=== PATIENT | male | born 1960 | race Caucasian/White ===

== ENCOUNTER 2018-04-10 22:53 | Inpatient (IN) | payer MEDICAID, OTHER ==
[~2018-04-10] VITALS: Ht 160 cm; Wt 76.4 kg
[2018-04-10] MEDS ORDERED: ONDANSETRON 4 MG INJ IV STA (23:44)
[2018-04-10] MEDS ORDERED: OCTREOTIDE 50 MCG in SOD CHLORIDE 0.9% 25 ML IVPB STA (23:44)
[2018-04-10] MEDS ORDERED: PANTOPRAZOLE IV 80 MG in SOD CHLORIDE 0.9% 100 ML IV STA (23:44)
[2018-04-10] MEDS ORDERED: PANTOPRAZOLE IV 80 MG in SOD CHLORIDE 0.9% 100 ML IVPB STA (23:44)
[2018-04-10] MEDS ORDERED: CEFTRIAXONE 1 GM/50 ML (PMX) 50 ML IVPB STA (23:44)
[2018-04-10] MEDS ORDERED: SOD CHLORIDE 0.9% 1,000 ML IV STA (23:44)
[2018-04-10] MEDS ORDERED: morphine 4 MG/ML VIAL IV STA (23:44)
[2018-04-10] MEDS ORDERED: OCTREOTIDE 500 MCG in SOD CHLORIDE 0.9% 49 ML IV STA (23:44)
[2018-04-11] VITALS (24 sets, daily range): BP systolic 100–139; BP diastolic 56–89; PULSE 79–117; RESP 15–34; Ht 160 cm; Wt 76.4 kg
[2018-04-11] MEDS ORDERED: ONDANSETRON INJ 8 MG in DEXTROSE 5% 50 ML IV STA (00:56)
[2018-04-11] MEDS ORDERED: METOCLOPRAMIDE 10 MG INJ IV STA (00:56)
[2018-04-11] MEDS ORDERED: morphine 2 MG INJ IV PRN (02:00)
[2018-04-11] MEDS ORDERED: NACL 0.9% 3 ML SYG IV SCH (02:00)
[2018-04-11] MEDS ORDERED: SOD CHLORIDE 0.9% 250 ML IV* ONE (02:38)
--- NOTE | 2018-04-11 02:54 | HP ---
Date/Time of Note Date/Time of Note DATE: 04/11/18 TIME: 02:54 Assessment/Plan VTE Prophylaxis Pharmacological prophylaxis: other Lines/Catheters IV Catheter Type (from Nrs): Saline Lock Assessment/Plan Hospital Course Objective Physical exam General: Patient is laying in bed and answers questions appropriately Mentation: Patient is alert and oriented 4, Head: Normocephalic atraumatic Eyes: EOMI, pupils reactive to light Neck: Supple, nontender, midline Respiratory: Clear to auscultation bilaterally Cardiovascular: regular rate, no obvious murmurs Gastrointestinal: Distended and tender to palpation, bowel sounds heard. Ventral hernia palpated and easily reducible Neurological: Moves all extremities spontaneously Skin: No new skin lesions Assessment and plan Acute upper and lower GI bleed -Secondary to alcoholic cirrhosis -We will reach out to GI for consultation, Dr. Ball -Likely upper GI source at this time, continue PPI drip, octreotide drip, ceftriaxone for prophylaxis -NG tube to intermittent suction -Since actively bleeding, order stat 1 unit packed RBC and 1 unit FFP -Standing order of transfusion of 1 unit of packed RBC if hemoglobin dips below 8.0 -IV fluids -NPO -Hemoglobin hematocrit every 6 hours Alcoholic liver cirrhosis -Patient has not seen a physician, it appears patient had this diagnosis for quite some time, not on any medications -GI recommendations appreciated elevated INR -mild, but likely 2/2 cirrhosis -will attempt vit K once, as patient is still actively bleeding Abdominal distention -Likely secondary to ascites secondary to alcoholic liver cirrhosis -CT abdomen pelvis has been done, pending read -Patient will likely need paracentesis before discharge however on hold for now as the urgent issue is the GI bleed Ventral hernia -Easily reducible -Pending CT read Tachycardia -Likely secondary to acute blood loss, continue IV hydration and monitor in ICU Disposition -Admit to the ICU for close monitoring as patient on the verge of continuous bleed, continue treatment for presumed upper GI bleed, stat 1 unit of packed RBC and 1 unit of FFP pending, Result Diagram: 04/10/18 0000 04/10/18 0000 HPI/ROS Admit Date/Time Admit Date/Time Hx of Present Illness Patient is an alcoholic male who presents to [facility] for acute onset hematemesis. Patient is an alcoholic who currently drinks every day whose last drink was only a couple hours before hospital admission who came to the ER after vomiting blood. Patient states that this is happened one time before but was approximately 11 years ago. Patient drinks every day does not see doctors. Patient in the ED had multiple episodes of julia temesis as well as black stool. Patient currently has an NG tube and draining blood however patient only really complains about abdominal distention and pain secondary to the distention. When asked patient how long the abdomen has been distended he states that it has been like that for a few years but has recently gotten worse. Patient currently denies chest pain, shortness of breath, headache, leg pain PMH/Family/Social Past Medical History Medications Current Medications Pantoprazole 80 mg/Sodium Chloride 100 ml @ 10 mls/hr ONCE STAT IV Last administered on 04/11/18at 01:00; Admin Dose 10 MLS/HR; Start 04/10/18 at 23:44; Stop 04/11/18 at 09:43 Octreotide Acetate 500 mcg/ Sodium Chloride 50 ml @ 5 mls/hr ONCE STAT IV Last administered on 04/11/18at 01:00; Admin Dose 5 MLS/HR; Start 04/10/18 at 23:44; Stop 04/11/18 at 09:43 Sodium Chloride 1,000 ml @ 100 mls/hr Q10H IV ; Start 04/11/18 at 01:44 IV Flush (NS 3 ml) 3 ml PER PROTOCOL IV ; Start 04/11/18 at 02:00 Ondansetron HCl (Zofran Inj) 4 mg Q6H PRN IV NAUSEA/VOMITING; Start 04/11/18 at 02:00 Morphine Sulfate (morphine) 2 mg Q4H PRN IV .PAIN 7-10; Start 04/11/18 at 02:00 Pantoprazole 80 mg/Sodium Chloride 100 ml @ 10 mls/hr Q10H IV ; Start 04/11/18 at 09:44 Octreotide Acetate 1 mg/ Dextrose 100 ml @ 5 mls/hr Q20H IV ; Start 04/11/18 at 09:44 Ceftriaxone Sodium 50 ml @ 100 mls/hr Q24H IVPB ; Start 04/12/18 at 02:00 Lorazepam (Ativan) 0.5 mg Q6H PRN IV anxiety; Start 04/11/18 at 03:00 Multivitamins 10 ml/Thiamine HCl 100 mg/Folic Acid 1 mg/Sodium Chloride 1,011.2 ml @ 125 mls/ hr DAILY@09 IVPB ; Start 04/11/18 at 09:00 Phytonadione (Vitamin K) 10 mg ONCE ONCE SC ; Start 04/11/18 at 03:00; Stop 04/11/18 at 03:01 Coded Allergies: No Known Allergy (Unverified , 04/11/18) Social History Smoking Status: Never smoker Exam/Review of Systems Vital Signs Vitals Vital Signs Date Temp Pulse Resp B/P (MAP) Pulse Ox O2 O2 Flow FiO2 Time Delivery Rate 04/11/18 113 18 121/61 96 Room Air 02:08 (81) 04/10/18 98.9 23:01 Intake and Output 04/10/18 04/10/18 04/11/18 1515:00 23:00 07:00 IntakeIntake Total 176 ml BalanceBalance 176 ml ZENY SEGUNDO Apr 11, 2018 02:54
[2018-04-11] MEDS ORDERED: MULTI PO (02:56)
[2018-04-11] MEDS ORDERED: PHYTONADIONE 10 MG/ML INJ SC ONE (03:00)
[2018-04-11] MEDS ORDERED: LORAZEPAM 2 MG INJ IV PRN (03:00)
--- NOTE | 2018-04-11 03:09 | ERD ---
ER Documentation Chief Complaint Chief Complaint HEMATEMESIS & BRIGHT RED BLOOD IN STOOL X 1 WEEK, SKIN PALE & SOB HPI This is a 58-year-old male comes in with complaints of coffee-ground emesis and bright red blood per stool for the past week. He has had 4-5 episodes of bloody stool 4-5 episodes of Emesis per Day. Patient Said He Feels Very Weak As Well. He Has a History of Cirrhosis. Denies Any Previous History of Esophageal Variceal Bleeding. ROS All systems reviewed and are negative except as per history of present illness. Medications Home Meds Reported Medications Multivitamins* (Theragran*) 1 Tab Tab, 1 TAB PO DAILY, TAB 04/11/18 Allergies Allergies: Coded Allergies: No Known Allergy (Unverified , 04/11/18) PMhx/Soc History of Surgery: Yes (HERNIA REPAIR) Anesthesia Reaction: No Hx Neurological Disorder: No Hx Respiratory Disorders: No Hx Cardiac Disorders: No Hx Psychiatric Problems: No Hx Miscellaneous Medical Probl: Yes (LIVER CIRRHOSIS) Hx Alcohol Use: Yes Hx Substance Use: No Hx Tobacco Use: No Smoking Status: Never smoker Physical Exam Vitals Vital Signs Date Temp Pulse Resp B/P (MAP) Pulse Ox O2 O2 Flow FiO2 Time Delivery Rate 04/11/18 113 18 121/61 96 Room Air 02:08 (81) 04/11/18 113 16 125/69 96 Room Air 01:00 (87) 04/11/18 115 24 118/58 97 Room Air 00:27 (78) 04/10/18 98.9 132 26 175/81 98 23:01 (112) Physical Exam Const: No acute distress Head: Atraumatic Eyes: Normal Conjunctiva ENT: Normal External Ears, Nose and Mouth. Neck: Full range of motion. No meningismus. Resp: Clear to auscultation bilaterally Cardio: Regular rate and rhythm, no murmurs Abd: Soft, non tender, non distended. Normal bowel sounds Skin: No petechiae or rashes Back: No midline or flank tenderness Ext: No cyanosis, or edema Neur: Awake and alert Psych: Normal Mood and Affect Result Diagram: 04/10/18 0000 04/10/18 0000 Results 24 hrs Laboratory Tests Test 04/10/18 00:00 White Blood Count 5.4 10^3/ul Red Blood Count 3.24 10^6/ul Hemoglobin 8.4 g/dl Hematocrit 28.1 % Mean Corpuscular Volume 86.7 fl Mean Corpuscular Hemoglobin 25.9 pg Mean Corpuscular Hemoglobin Concent 29.9 g/dl Red Cell Distribution Width 16.6 % Platelet Count 92 10^3/UL Mean Platelet Volume 10.2 fl Immature Granulocytes % 0.600 % Neutrophils % 75.1 % Lymphocytes % 10.8 % Monocytes % 9.2 % Eosinophils % 3.9 % Basophils % 0.4 % Nucleated Red Blood Cells % 0.0 /100WBC Immature Granulocytes # 0.030 10^3/ul Neutrophils # 4.0 10^3/ul Lymphocytes # 0.6 10^3/ul Monocytes # 0.5 10^3/ul Eosinophils # 0.2 10^3/ul Basophils # 0.0 10^3/ul Nucleated Red Blood Cells # 0.0 10^3/ul Prothrombin Time 17.3 Sec Prothrombin Time Ratio 1.4 INR International Normalized Ratio 1.40 Activated Partial Thromboplast Time 27.5 Sec Sodium Level 142 mmol/L Potassium Level 4.2 mmol/L Chloride Level 110 mmol/L Carbon Dioxide Level 22 mmol/L Anion Gap 10 Blood Urea Nitrogen 19 mg/dl Creatinine 0.60 mg/dl Est Glomerular Filtrat Rate mL/min > 60 mL/min Glucose Level 167 mg/dl Calcium Level 8.5 mg/dl Total Bilirubin 1.0 mg/dl Direct Bilirubin 0.00 mg/dl Indirect Bilirubin 1.0 mg/dl Aspartate Amino Transf (AST/SGOT) 52 IU/L Alanine Aminotransferase (ALT/SGPT) 39 IU/L Alkaline Phosphatase 75 IU/L Troponin I < 0.012 ng/ml Total Protein 6.9 g/dl Albumin 3.3 g/dl Globulin 3.60 g/dl Albumin/Globulin Ratio 0.91 Lipase 225 U/L Current Medications Medications Dose Sig/Zaina Start Time Status Last (Trade) Ordered Route PRN Stop Time Admin Dose Reason Admin Sodium 1,000 ml @ Q1H STAT 04/10/18 DC 04/11/18 Chloride 1,000 mls/hr IV 23:44 00:20 04/11/18 00:43 Pantoprazole 100 ml @ ONCE STAT 04/10/18 DC 04/11/18 80 mg/Sodium 400 mls/hr IVPB 23:44 00:40 Chloride 2/13/19 23:58 Pantoprazole 100 ml @ ONCE STAT 04/10/18 04/11/18 80 mg/Sodium 10 mls/hr IV 23:44 01:00 Chloride 04/11/18 09:43 Octreotide 26 ml @ Q16M STAT 04/10/18 DC 04/11/18 Acetate 50 100 mls/hr IVPB 23:44 00:40 mcg/ Sodium 04/10/18 23:59 Chloride Octreotide 50 ml @ 5 ONCE STAT 04/10/18 04/11/18 Acetate 500 mls/hr IV 23:44 01:00 mcg/ Sodium 04/11/18 09:43 Chloride Ondansetron 4 mg ONCE STAT 04/10/18 DC 04/11/18 HCl (Zofran IV 23:44 00:19 Inj) 04/10/18 23:46 Ceftriaxone 50 ml @ ONCE STAT 04/10/18 DC 04/11/18 Sodium 100 mls/hr IVPB 23:44 00:20 04/11/18 00:13 Morphine 4 mg ONCE STAT 04/10/18 DC 04/11/18 Sulfate IV 23:44 00:19 (morphine) 04/10/18 23:46 Ondansetron 54 ml @ ONCE STAT 04/11/18 DC 04/11/18 HCl 8 200 mls/hr IV 00:56 01:10 mg/Dextrose 04/11/18 01:12 10 mg ONCE STAT 04/11/18 DC 04/11/18 Metoclopramid IV 00:56 01:10 e HCl 04/11/18 00:58 (Reglan) Sodium 1,000 ml @ Q10H IV 04/11/18 Chloride 100 mls/hr 01:44 IV Flush 3 ml PER 04/11/18 (NS 3 ml) PROTOCOL IV 02:00 Ondansetron 4 mg Q6H PRN 04/11/18 HCl (Zofran IV 02:00 Inj) NAUSEA/VOMITI NG Morphine 2 mg Q4H PRN 04/11/18 Sulfate IV .PAIN 02:00 (morphine) 7-10 Pantoprazole 100 ml @ Q10H IV 04/11/18 80 mg/Sodium 10 mls/hr 09:44 Chloride Octreotide 100 ml @ 5 Q20H IV 04/11/18 Acetate 1 mls/hr 09:44 mg/ Dextrose Ceftriaxone 50 ml @ Q24H IVPB 04/12/18 Sodium 100 mls/hr 02:00 Sodium 250 ml @ 0 Q0M ONCE 04/11/18 DC Chloride mls/hr IV* 02:38 04/11/18 02:40 Lorazepam 0.5 mg Q6H PRN 04/11/18 (Ativan) IV anxiety 03:00 1,011.2 ml DAILY@09 04/11/18 Multivitamins @ 125 mls/ IVPB 09:00 10 hr ml/Thiamine HCl 100 mg/Folic Acid 1 mg/Sodium Chloride 10 mg ONCE ONCE 04/11/18 DC Phytonadione SC 03:00 (Vitamin K) 04/11/18 03:01 Procedures/MDM EKG: Rate/Rhythm: Sinus tachycardia QRS, ST, T-waves: [No changes consistent w/ acute ischemia] Impression: Sinus tachycardia Chest X-ray 1V Interpreted by me: Soft Tissue: No acute abnormalities Bones: No acute abnormalities Mediastinum/Cardiac Silhouette/Lungs: [No acute abnormalities] Critical Care: Time: 45 minutes, independent of any separately billable procedural time Treatments/Evaluations: Close monitoring and treatment of unstable vital signs, cardiorespiratory, and neurologic status, while maintaining tight balance of fluid, respiratory, and cardiac interventions. Department course: Patient seen and evaluated by ER MD. Intravenous access t established and blood work drawn. Started on Sandostatin and Protonix drip. Medical decision making: This is a very pleasant patient who unfortunately has likely esophageal variceal bleeding. Started on appropriate Sandostatin and Protonix drips. NG tube placed. Patient will be admitted to hospitalist in the intensive care setting for further evaluation and management GI consultation. Continues to remain clinically stable here in the emergency department Departure Diagnosis: Primary Impression: Hematemesis Nausea presence: unspecified Qualified Codes: K92.0 - Hematemesis Condition: Critical DAMIAN KOWALSKI Apr 11, 2018 03:09
[2018-04-11] MEDS: SOD CHLORIDE 0.9% 1,000 ML IV SCH ×3 (05:41→21:06)
[2018-04-11] MEDS: ONDANSETRON 4 MG INJ IV PRN ×2 (06:24→12:13)
--- NOTE | 2018-04-11 09:46 | PN ---
Date/Time of Note Date/Time of Note DATE: 04/11/18 TIME: 09:40 Assessment/Plan VTE Prophylaxis Risk score (from Ns)>0 risk: 3 SCD applied (from Ns): Yes Pharmacological prophylaxis: other Pharm contraindication: bleeding Lines/Catheters [facility] Urinary Cath still in place: No Assessment/Plan Hospital Course S: Per discussion with nursing staff, patient apparently got 1 unit PRBC transfusion and FFP transfusion earlier this morning. NG tube still in place. O: VS - see below Physical exam General: Lying in bed, alert, NG tube in place Head: Normocephalic atraumatic Eyes: EOMI, pupils reactive to light Neck: Supple, nontender, midline Respiratory: Clear to auscultation bilaterally Cardiovascular: regular rate, no obvious murmurs Gastrointestinal: Distended and tender to palpation, bowel sounds heard. Ventral hernia palpated and easily reducible Neurological: Moves all extremities spontaneously CT abdomen and pelvis: IMPRESSION: 1. Cirrhotic liver without discrete mass. 2. Splenomegaly and varicosities likely consistent with portal hypertension. 3. Mild to moderate ascites. 4. Ventral abdominal wall hernia containing mesenteric fat only. 5. Diverticulosis without diverticulitis. 6. Cholelithiasis. 7. Cardiomegaly. Assessment and plan: 58-year-old male who presents with: # Acute upper and lower GI bleed-likely secondary to alcoholic cirrhosis. Suspect upper GI source at this time. Apparently received 1 unit PRBC and FFP earlier today. - continue PPI drip, octreotide drip, ceftriaxone for prophylaxis, follow-up recommendations from GI team -Continue NG tube to intermittent suction -Continue IV fluids, and NPO for now -Monitor hemoglobin and hematocrit per GI recommendations # Alcoholic liver cirrhosis-Patient has not seen a physician, it appears patient had this diagnosis for quite some time, not on any medications -Check ethanol level, monitor for signs of withdrawal, follow-up GI recommendations, Ativan as needed, consider banana bag # elevated INR-mild, but likely 2/2 cirrhosis -Status post FFP, monitor coags for now. # Abdominal distention-Likely secondary to ascites secondary to alcoholic liver cirrhosis. CT abdomen pelvis results noted. -We will order for paracentesis, follow-up fluid studies and GI recommendations # Ventral hernia-Easily reducible -Monitor for now, if worsens consider surgery consult # Tachycardia -Likely secondary to acute blood loss, continue IV hydration and monitor in ICU -Monitor for now Critical care time spent in patient care today equals 50 minutes. Result Diagram: 04/10/18 0000 04/10/18 0000 Exam/Review of Systems Exam Vitals Vital Signs Date Temp Pulse Resp B/P (MAP) Pulse Ox O2 O2 Flow FiO2 Time Delivery Rate 04/11/18 102 18 129/82 96 09:00 (98) 04/11/18 98.2 Room Air 08:00 Intake and Output 04/10/18 04/10/18 04/11/18 1414:59 22:59 06:59 IntakeIntake Total 541 ml BalanceBalance 541 ml Medications Medication Current Medications Pantoprazole 80 mg/Sodium Chloride 100 ml @ 10 mls/hr ONCE STAT IV Last administered on 04/11/18at 01:00; Admin Dose 10 MLS/HR; Start 04/10/18 at 23:44; Stop 04/11/18 at 09:43 Octreotide Acetate 500 mcg/ Sodium Chloride 50 ml @ 5 mls/hr ONCE STAT IV Last administered on 04/11/18at 01:00; Admin Dose 5 MLS/HR; Start 04/10/18 at 23:44; Stop 04/11/18 at 09:43 Sodium Chloride 1,000 ml @ 100 mls/hr Q10H IV Last administered on 04/11/18at 05:41; Admin Dose 100 MLS/HR; Start 04/11/18 at 01:44 IV Flush (NS 3 ml) 3 ml PER PROTOCOL IV ; Start 04/11/18 at 02:00 Ondansetron HCl (Zofran Inj) 4 mg Q6H PRN IV NAUSEA/VOMITING Last administered on 04/11/18at 06:24; Admin Dose 4 MG; Start 04/11/18 at 02:00 Morphine Sulfate (morphine) 2 mg Q4H PRN IV .PAIN 7-10; Start 04/11/18 at 02:00 Pantoprazole 80 mg/Sodium Chloride 100 ml @ 10 mls/hr Q10H IV ; Start 04/11/18 at 09:44 Octreotide Acetate 1 mg/ Dextrose 100 ml @ 5 mls/hr Q20H IV ; Start 04/11/18 at 09:44 Ceftriaxone Sodium 50 ml @ 100 mls/hr Q24H IVPB ; Start 04/12/18 at 02:00 Lorazepam (Ativan) 0.5 mg Q6H PRN IV anxiety; Start 04/11/18 at 03:00 Multivitamins 10 ml/Thiamine HCl 100 mg/Folic Acid 1 mg/Sodium Chloride 1,011.2 ml @ 125 mls/ hr DAILY@09 IVPB ; Start 04/11/18 at 09:00 Influenza Virus Vaccine Quadrival (Fluzone) 0.5 ml ONCE ONCE IM* ; Start 04/12/18 at 11:00; Stop 04/12/18 at 11:01 Trimethobenzamide HCl (Tigan) 200 mg Q6H PRN IM NAUSEA AND/OR VOMITING; Start 04/11/18 at 10:00; Status SANDI LOPEZ Apr 11, 2018 09:46
[2018-04-11] MEDS: PANTOPRAZOLE IV 80 MG in SOD CHLORIDE 0.9% 100 ML IV SCH ×2 (09:57→21:06)
[2018-04-11] MEDS: OCTREOTIDE 1 MG in DEXTROSE 5% 95 ML IV SCH (09:58)
[2018-04-11] MEDS ORDERED: TRIMETHOBENZAMIDE 100 MG/ML VIAL IM PRN (10:00)
[2018-04-11] MEDS: MULTIVITAMINS 10 ML, THIAMINE 100 MG, FOLIC ACID 1 MG in SOD CHLORIDE 0.9% 1,000 ML IVPB SCH (12:09)
--- NOTE | 2018-04-11 14:53 | CONS ---
Assessment/Plan Assessment/Plan Assessment/Plan (Daily) Summary Assessment and Plan: Assessment: Hematochezia/melena Alcoholic liver cirrhosis (DF 12)- Last alcoholic drink 04/09/18 -Normocytic anemia -Thrombocytopenia -Coagulopathy elevated AST Tachycardia Cholelithiasis Plan: Continue PPI/Octreotide gtt for now Monitor H/H transfuse as needed Keep NPO for possible EGD today Endoscopy - risks/benefits/alternatives/indications of procedure and s edation/anesthesia discussed with patient who states understanding and gives informed consent to proceed. Patient seen in collaboration Dr. Green CC: MILDRED GREEN ; Consultation Date/Type/Reason Admit Date/Time Date of Consultation: Apr 11, 2018 Type of Consult GI Date/Time of Note DATE: 04/11/18 TIME: 14:25 Hx of Present Illness This is a 58-year-old male with past medical history of alcohol abuse and alcoholic liver cirrhosis who presented to the hospital with complaints of melena times 1 week and hematemesis times 1 day. Patient states he drinks about 2-3 beers per day and much more in the weekends up to 12-15 been doing so for the past 4 years. Patient states he has had episodes like this previously which has resolved on their own. He also states he previously had an EGD unclear on those results. With hospitalization hematology shows hemoglobin of 8.4, INR 1.40 he is status post 1 unit packed RBCs and 1 unit FFP hemoglobin was rechecked 10 hours later and again hemoglobin is 8.4 currently has an NG tube in place with bloody drainage his platelet count is 73 he currently denies nausea/vomiting complains of some abdominal pain with umbilical hernia no complaints of diarrhea or hematochezia does complain of melena. Given clinical picture plan for EGD likely today. Patient is currently on PPI/octreotide drip will continue current regimen until we assess patient with upper endoscopy. Review of Systems: A 12 system, review was conducted and is negative except as noted in the HPI or here. Past Medical History Home Meds Reported Medications Multivitamins* (Theragran*) 1 Tab Tab, 1 TAB PO DAILY, TAB 04/11/18 Medications Current Medications Sodium Chloride 1,000 ml @ 100 mls/hr Q10H IV Last administered on 04/11/18at 05:41; Admin Dose 100 MLS/HR; Start 04/11/18 at 01:44 IV Flush (NS 3 ml) 3 ml PER PROTOCOL IV ; Start 04/11/18 at 02:00 Ondansetron HCl (Zofran Inj) 4 mg Q6H PRN IV NAUSEA/VOMITING Last administered on 04/11/18at 12:13; Admin Dose 4 MG; Start 04/11/18 at 02:00 Morphine Sulfate (morphine) 2 mg Q4H PRN IV .PAIN 7-10; Start 04/11/18 at 02:00 Pantoprazole 80 mg/Sodium Chloride 100 ml @ 10 mls/hr Q10H IV Last administered on 04/11/18at 09:57; Admin Dose 10 MLS/HR; Start 04/11/18 at 09:44 Octreotide Acetate 1 mg/ Dextrose 100 ml @ 5 mls/hr Q20H IV Last administered on 04/11/18at 09:58; Admin Dose 5 MLS/HR; Start 04/11/18 at 09:44 Ceftriaxone Sodium 50 ml @ 100 mls/hr Q24H IVPB ; Start 04/12/18 at 02:00 Lorazepam (Ativan) 0.5 mg Q6H PRN IV anxiety; Start 04/11/18 at 03:00 Multivitamins 10 ml/Thiamine HCl 100 mg/Folic Acid 1 mg/Sodium Chloride 1,011.2 ml @ 125 mls/ hr DAILY@09 IVPB Last administered on 04/11/18at 12:09; Admin Dose 125 MLS/HR; Start 04/11/18 at 09:00 Influenza Virus Vaccine Quadrival (Fluzone) 0.5 ml ONCE ONCE IM* ; Start 04/12/18 at 11:00; Stop 04/12/18 at 11:01 Trimethobenzamide HCl (Tigan) 200 mg Q6H PRN IM NAUSEA AND/OR VOMITING; Start 04/11/18 at 10:00 Allergies: Coded Allergies: No Known Allergy (Unverified , 04/11/18) Social History Smoking Status: Never smoker Exam/Review of Systems Exam Vitals Vital Signs Date Temp Pulse Resp B/P (MAP) Pulse Ox O2 O2 Flow FiO2 Time Delivery Rate 04/11/18 103 21 132/78 99 13:00 (96) 04/11/18 98.0 Room Air 12:00 Intake and Output 04/10/18 04/10/18 04/11/18 1515:00 23:00 07:00 IntakeIntake Total 656 ml BalanceBalance 656 ml PHYSICAL EXAMINATION: GENERAL: Well developed, well nourished, alert & oriented x 3, in no acute distress SKIN: No lesions EYES: Pupils equal reactive to light and accommodation, full extraocular movements,no discharge. EARS/NOSE AND THROAT: Ears normal, nose normal, oropharynx normal. NGT in place NECK: Supple, no masses CHEST: Inspection within normal limits. CARDIOVASCULAR: Heart: Regular rate and rhythm, GASTROINTESTINAL AND LIVER: Abdomen: Soft, non tenderness, normal distended, no ascites, no guarding, no rebound tenderness, normoactive bowel sounds. Rectal: Deferred. Results Result Diagram: 04/11/18 0955 04/10/18 0000 Results 24hrs Laboratory Tests Test 04/11/18 09:55 White Blood Count 3.6 #L Red Blood Count 3.25 L Hemoglobin 8.4 L Hematocrit 27.8 L Mean Corpuscular Volume 85.5 Mean Corpuscular Hemoglobin 25.8 L Mean Corpuscular Hemoglobin Concent 30.2 L Red Cell Distribution Width 15.9 H Platelet Count 73 #L Mean Platelet Volume 11.0 H Immature Granulocytes % 0.800 H Neutrophils % 78.7 H Lymphocytes % 11.5 L Monocytes % 8.4 Eosinophils % 0.3 Basophils % 0.3 Nucleated Red Blood Cells % 0.0 Immature Granulocytes # 0.030 Neutrophils # 2.8 Lymphocytes # 0.4 L Monocytes # 0.3 Eosinophils # 0.0 Basophils # 0.0 Nucleated Red Blood Cells # 0.0 Ethyl Alcohol Level < 10.0 H Medications Medication Current Medications Sodium Chloride 1,000 ml @ 100 mls/hr Q10H IV Last administered on 04/11/18at 05:41; Admin Dose 100 MLS/HR; Start 04/11/18 at 01:44 IV Flush (NS 3 ml) 3 ml PER PROTOCOL IV ; Start 04/11/18 at 02:00 Ondansetron HCl (Zofran Inj) 4 mg Q6H PRN IV NAUSEA/VOMITING Last administered on 04/11/18at 12:13; Admin Dose 4 MG; Start 04/11/18 at 02:00 Morphine Sulfate (morphine) 2 mg Q4H PRN IV .PAIN 7-10; Start 04/11/18 at 02:00 Pantoprazole 80 mg/Sodium Chloride 100 ml @ 10 mls/hr Q10H IV Last administered on 04/11/18at 09:57; Admin Dose 10 MLS/HR; Start 04/11/18 at 09:44 Octreotide Acetate 1 mg/ Dextrose 100 ml @ 5 mls/hr Q20H IV Last administered on 04/11/18at 09:58; Admin Dose 5 MLS/HR; Start 04/11/18 at 09:44 Ceftriaxone Sodium 50 ml @ 100 mls/hr Q24H IVPB ; Start 04/12/18 at 02:00 Lorazepam (Ativan) 0.5 mg Q6H PRN IV anxiety; Start 04/11/18 at 03:00 Multivitamins 10 ml/Thiamine HCl 100 mg/Folic Acid 1 mg/Sodium Chloride 1,011.2 ml @ 125 mls/ hr DAILY@09 IVPB Last administered on 04/11/18at 12:09; Admin Dose 125 MLS/HR; Start 04/11/18 at 09:00 Influenza Virus Vaccine Quadrival (Fluzone) 0.5 ml ONCE ONCE IM* ; Start 04/12/18 at 11:00; Stop 04/12/18 at 11:01 Trimethobenzamide HCl (Tigan) 200 mg Q6H PRN IM NAUSEA AND/OR VOMITING; Start 04/11/18 at 10:00 LM DAVIS Apr 11, 2018 14:35
--- NOTE | 2018-04-11 18:29 | QN ---
Documentation Comment GI INTERIM NOTE Due to patient stability and procedural scheduling issues, we will reschedule patient to undergo EGD tomorrow. Keep NPO Serial H/H. Continue current supportive measures. MILDRED GREEN Apr 11, 2018 18:29
[2018-04-12] VITALS (21 sets, daily range): BP systolic 109–142; BP diastolic 62–91; PULSE 72–103; RESP 15–28
[2018-04-12] MEDS: CEFTRIAXONE 1 GM/50 ML (PMX) 50 ML IVPB SCH (02:00)
[2018-04-12] MEDS: OCTREOTIDE 1 MG in DEXTROSE 5% 95 ML IV SCH (05:50)
[2018-04-12] MEDS: PANTOPRAZOLE IV 80 MG in SOD CHLORIDE 0.9% 100 ML IV SCH ×2 (06:37→15:44)
[2018-04-12] MEDS: SOD CHLORIDE 0.9% 1,000 ML IV SCH ×3 (07:44→21:15)
[2018-04-12] MEDS: MULTIVITAMINS 10 ML, THIAMINE 100 MG, FOLIC ACID 1 MG in SOD CHLORIDE 0.9% 1,000 ML IVPB SCH (08:01)
--- NOTE | 2018-04-12 10:33 | PN ---
Date/Time of Note Date/Time of Note DATE: 04/12/18 TIME: 10:28 Assessment/Plan VTE Prophylaxis Risk score (from Ns)>0 risk: 1 SCD applied (from Ns): Yes Pharmacological prophylaxis: NA/contraindicated Pharm contraindication: bleeding Lines/Catheters IV Catheter Type (from [facility]): Peripheral IV Urinary Cath still in place: No Assessment/Plan Hospital Course S: Patient still n.p.o., complaining of some lower abdominal pain. Awaiting EGD to be performed later today. Not able to have paracentesis performed yesterday as they determined there was not enough fluid to be removed in the abdomen. Did receive another unit of PRBC transfusion earlier this morning. No signs of any upper or lower GI bleeding presently. NG tube still in place. O: VS - see below Physical exam General: Lying in bed, alert, NG tube in place Head: Normocephalic atraumatic Eyes: EOMI, pupils reactive to light Neck: Supple, nontender, midline Respiratory: Clear to auscultation bilaterally Cardiovascular: regular rate, no obvious murmurs Gastrointestinal: Distended and tender to palpation, bowel sounds heard. Ventral hernia palpated and easily reducible Neurological: Moves all extremities spontaneously CT abdomen and pelvis: IMPRESSION: 1. Cirrhotic liver without discrete mass. 2. Splenomegaly and varicosities likely consistent with portal hypertension. 3. Mild to moderate ascites. 4. Ventral abdominal wall hernia containing mesenteric fat only. 5. Diverticulosis without diverticulitis. 6. Cholelithiasis. 7. Cardiomegaly. Assessment and plan: 58-year-old male who presents with: # Acute upper and lower GI bleed-likely secondary to alcoholic cirrhosis. Suspect upper GI source at this time. Status post 1 unit of FFP transfusion earlier this admission, and a total of 2 units of PRBC transfusion since this admission. - continue PPI drip, octreotide drip, ceftriaxone for prophylaxis, follow-up recommendations from GI team -Continue NG tube to intermittent suction -Continue IV fluids, and NPO for now -per GI they are planning for EGD later today, follow-up post procedure recommendation -Monitor hemoglobin and hematocrit per GI recommendations # Alcoholic liver cirrhosis-Patient has not seen a physician, it appears patient had this diagnosis for quite some time, not on any medications at home apparently -monitor for signs of withdrawal, follow-up GI recommendations, Ativan as needed, consider banana bag # elevated INR-mild, but likely 2/2 cirrhosis -Status post FFP, monitor coags for now. # Abdominal distention-Likely secondary to mild ascites secondary to alcoholic liver cirrhosis. CT abdomen pelvis results noted. -Again, yesterday not enough fluid to removed via paracentesis so this was not done, monitor for now # Ventral hernia-Easily reducible -Monitor for now, if worsens consider surgery consult # Tachycardia -Likely secondary to acute blood loss, continue IV hydration and monitor in ICU -Monitor for now Critical care time spent in patient care today equals 45 minutes. Result Diagram: 04/12/18 0545 04/12/18 0545 Results 24hrs Laboratory Tests Test 04/11/18 15:55 04/11/18 18:07 04/12/18 00:27 04/12/18 04:58 Hemoglobin 8.3 L 8.3 L 7.9 L Hematocrit 26.8 L 27.1 L 25.7 L Lab Scanned BLOOD TRANSFUSIO Report N Test 04/12/18 05:45 White Blood Count 4.4 #L Red Blood Count 3.18 L Hemoglobin 8.8 L Hematocrit 27.9 L Mean Corpuscular 87.7 Volume Mean Corpuscular 27.7 L Hemoglobin Mean Corpuscular 31.5 L Hemoglobin Concen t Red Cell 16.1 H Distribution Width Platelet Count 62 L Mean Platelet 11.2 H Volume Immature 0.700 H Granulocytes % Neutrophils % 71.8 Lymphocytes % 13.2 L Monocytes % 8.6 Eosinophils % 5.2 Basophils % 0.5 Nucleated Red 0.0 Blood Cells % Immature 0.030 Granulocytes # Neutrophils # 3.2 Lymphocytes # 0.6 L Monocytes # 0.4 Eosinophils # 0.2 Basophils # 0.0 Nucleated Red 0.0 Blood Cells # Sodium Level 141 Potassium Level 3.4 L Chloride Level 112 H Carbon Dioxide 23 Level Anion Gap 6 Blood Urea 13 Nitrogen Creatinine 0.71 Est Glomerular > 60 Filtrat Rate mL/min Glucose Level 131 Hemoglobin A1c 5.3 Calcium Level 7.6 L Magnesium Level 2.0 Total Bilirubin 1.4 H Direct Bilirubin 0.00 Indirect 1.4 H Bilirubin Aspartate Amino 53 H Transf (AST/SGOT) Alanine 42 Aminotransferase (ALT/SGPT) Alkaline 74 Phosphatase Total Protein 6.6 Albumin 3.0 L Globulin 3.60 H Albumin/Globulin 0.83 Ratio Hepatitis B NEGATIVE Surface Antigen Hepatitis B NEGATIVE Surface Antibody Hepatitis B Core NEGATIVE Total Antibody Hepatitis C NEGATIVE Antibody Exam/Review of Systems Exam Vitals Vital Signs Date Temp Pulse Resp B/P (MAP) Pulse Ox O2 O2 Flow FiO2 Time Delivery Rate 04/12/18 84 20 138/84 95 10:00 (102) 04/12/18 Room Air 09:00 04/12/18 98.4 08:00 Intake and Output 04/11/18 04/11/18 04/12/18 1515:00 23:00 07:00 IntakeIntake Total 1070 ml 925 ml 854.5 ml OutputOutput Total 450 ml 1050 ml BalanceBalance 620 ml 925 ml -195.5 ml Results Results 24hrs Laboratory Tests Test 04/11/18 15:55 04/11/18 18:07 04/12/18 00:27 04/12/18 04:58 Hemoglobin 8.3 L 8.3 L 7.9 L Hematocrit 26.8 L 27.1 L 25.7 L Lab Scanned BLOOD TRANSFUSIO Report N Test 04/12/18 05:45 White Blood Count 4.4 #L Red Blood Count 3.18 L Hemoglobin 8.8 L Hematocrit 27.9 L Mean Corpuscular 87.7 Volume Mean Corpuscular 27.7 L Hemoglobin Mean Corpuscular 31.5 L Hemoglobin Concen t Red Cell 16.1 H Distribution Width Platelet Count 62 L Mean Platelet 11.2 H Volume Immature 0.700 H Granulocytes % Neutrophils % 71.8 Lymphocytes % 13.2 L Monocytes % 8.6 Eosinophils % 5.2 Basophils % 0.5 Nucleated Red 0.0 Blood Cells % Immature 0.030 Granulocytes # Neutrophils # 3.2 Lymphocytes # 0.6 L Monocytes # 0.4 Eosinophils # 0.2 Basophils # 0.0 Nucleated Red 0.0 Blood Cells # Sodium Level 141 Potassium Level 3.4 L Chloride Level 112 H Carbon Dioxide 23 Level Anion Gap 6 Blood Urea 13 Nitrogen Creatinine 0.71 Est Glomerular > 60 Filtrat Rate mL/min Glucose Level 131 Hemoglobin A1c 5.3 Calcium Level 7.6 L Magnesium Level 2.0 Total Bilirubin 1.4 H Direct Bilirubin 0.00 Indirect 1.4 H Bilirubin Aspartate Amino 53 H Transf (AST/SGOT) Alanine 42 Aminotransferase (ALT/SGPT) Alkaline 74 Phosphatase Total Protein 6.6 Albumin 3.0 L Globulin 3.60 H Albumin/Globulin 0.83 Ratio Hepatitis B NEGATIVE Surface Antigen Hepatitis B NEGATIVE Surface Antibody Hepatitis B Core NEGATIVE Total Antibody Hepatitis C NEGATIVE Antibody Medications Medication Current Medications Sodium Chloride 1,000 ml @ 100 mls/hr Q10H IV Last administered on 04/11/18at 21:06; Admin Dose 100 MLS/HR; Start 04/11/18 at 01:44 IV Flush (NS 3 ml) 3 ml PER PROTOCOL IV ; Start 04/11/18 at 02:00 Ondansetron HCl (Zofran Inj) 4 mg Q6H PRN IV NAUSEA/VOMITING Last administered on 04/11/18at 12:13; Admin Dose 4 MG; Start 04/11/18 at 02:00 Morphine Sulfate (morphine) 2 mg Q4H PRN IV .PAIN 7-10; Start 04/11/18 at 02:00 Pantoprazole 80 mg/Sodium Chloride 100 ml @ 10 mls/hr Q10H IV Last administered on 04/12/18at 06:37; Admin Dose 10 MLS/HR; Start 04/11/18 at 09:44 Octreotide Acetate 1 mg/ Dextrose 100 ml @ 5 mls/hr Q20H IV Last administered on 04/12/18at 05:50; Admin Dose 5 MLS/HR; Start 04/11/18 at 09:44 Ceftriaxone Sodium 50 ml @ 100 mls/hr Q24H IVPB Last administered on 04/12/18at 02:00; Admin Dose 100 MLS/HR; Start 04/12/18 at 02:00 Lorazepam (Ativan) 0.5 mg Q6H PRN IV anxiety; Start 04/11/18 at 03:00 Multivitamins 10 ml/Thiamine HCl 100 mg/Folic Acid 1 mg/Sodium Chloride 1,011.2 ml @ 125 mls/ hr DAILY@09 IVPB Last administered on 04/12/18at 08:01; Admin Dose 125 MLS/HR; Start 04/11/18 at 09:00 Influenza Virus Vaccine Quadrival (Fluzone) 0.5 ml ONCE ONCE IM* ; Start 04/12/18 at 11:00; Stop 04/12/18 at 11:01 Trimethobenzamide HCl (Tigan) 200 mg Q6H PRN IM NAUSEA AND/OR VOMITING; Start 04/11/18 at 10:00 Potassium Chloride 100 ml @ 50 mls/hr Q2H IVPB ; Start 04/12/18 at 10:30; Stop 04/12/18 at 14:29; Status SANDI LOPEZ Apr 12, 2018 10:33
[2018-04-12] MEDS: POTASSIUM CHLORIDE 100 ML IVPB SCH ×2 (10:47→13:21)
--- NOTE | 2018-04-12 13:33 | PREAC ---
Date/Time of Note Date/Time of Note DATE: 04/12/18 TIME: 13:32 Anesthesia Eval and Record Evaluation Time Pre-Procedure Interview DATE: 04/12/18 TIME: 13:32 Age 58 Sex male NPO: 8 hrs Preoperative diagnosis GI Bleed Planned procedure EGD Past Medical History Past Medical History: Includes Hepatic: Alcohol abuse, Cirrhosis Surgery & Anesthesia Issues No known issue Meds Anticoagulation: No Beta Yudy within 24 hr: No Reason Beta Yudy not given: Pt. not on B-Yudy Reported Medications Multivitamins* (Theragran*) 1 Tab Tab, 1 TAB PO DAILY, TAB 04/11/18 Current Medications Sodium Chloride 1,000 ml @ 100 mls/hr Q10H IV Last administered on 04/11/18at 21:06; Admin Dose 100 MLS/HR; Start 04/11/18 at 01:44 IV Flush (NS 3 ml) 3 ml PER PROTOCOL IV ; Start 04/11/18 at 02:00 Ondansetron HCl (Zofran Inj) 4 mg Q6H PRN IV NAUSEA/VOMITING Last administered on 04/11/18at 12:13; Admin Dose 4 MG; Start 04/11/18 at 02:00 Morphine Sulfate (morphine) 2 mg Q4H PRN IV .PAIN 7-10; Start 04/11/18 at 02:00 Pantoprazole 80 mg/Sodium Chloride 100 ml @ 10 mls/hr Q10H IV Last administered on 04/12/18at 06:37; Admin Dose 10 MLS/HR; Start 04/11/18 at 09:44 Octreotide Acetate 1 mg/ Dextrose 100 ml @ 5 mls/hr Q20H IV Last administered on 04/12/18at 05:50; Admin Dose 5 MLS/HR; Start 04/11/18 at 09:44 Ceftriaxone Sodium 50 ml @ 100 mls/hr Q24H IVPB Last administered on 04/12/18at 02:00; Admin Dose 100 MLS/HR; Start 04/12/18 at 02:00 Lorazepam (Ativan) 0.5 mg Q6H PRN IV anxiety; Start 04/11/18 at 03:00 Multivitamins 10 ml/Thiamine HCl 100 mg/Folic Acid 1 mg/Sodium Chloride 1,011.2 ml @ 125 mls/ hr DAILY@09 IVPB Last administered on 04/12/18at 08:01; Admin Dose 125 MLS/HR; Start 04/11/18 at 09:00 Trimethobenzamide HCl (Tigan) 200 mg Q6H PRN IM NAUSEA AND/OR VOMITING; Start 04/11/18 at 10:00 Potassium Chloride 100 ml @ 50 mls/hr Q2H IVPB Last administered on 04/12/18at 13:21; Admin Dose 50 MLS/HR; Start 04/12/18 at 11:00; Stop 04/12/18 at 14:59 Meds reviewed: Yes Allergies Coded Allergies: No Known Allergy (Unverified , 04/11/18) Allergies Reviewed: Yes Labs/Studies Labs Reviewed: Reviewed by anesthesiologist Result Diagram: 04/12/18 1136 04/12/18 0545 Laboratory Tests 04/12/18 05:45 04/12/18 11:36 test: N/A Pre-procedure Exam Last vitals Vital Signs Date Temp Pulse Resp B/P (MAP) Pulse Ox O2 O2 Flow FiO2 Time Delivery Rate 04/12/18 98.6 88 18 131/77 96 12:00 (95) 04/12/18 Room Air 11:00 Airway: Adequate mouth opening, Adequate thyromental dist Mallampati: Mallampati II Teeth: Normal Lung: Normal Heart: Normal ASA Physical Status ASA physical status: 3 Emergency: None Planned Anesthetic General/MAC: Mask Planned Pain Management Parenteral pain med Pre-operative Attestations Prior to commencing anesthesia and surgery, the patient was re-evaluated, there was verification of: *The patient's identity *The results of appropriate recent lab work and preoperative vital signs *The above evaluation not changing prior to induction *Anesthetic plan, risk benefits, alternative and complications discussed with patient/family; questions answered; patient/family understands, accepts and wishes to proceed. CHEY YAN MD Apr 12, 2018 13:33
--- NOTE | 2018-04-12 13:53 | HPN ---
Date/Time of Note Date/Time of Note DATE: 04/12/18 TIME: 13:53 Interval H&P Admission Note Pt. seen H&P reviewed: No system changes MILDRED GREEN Apr 12, 2018 13:53
--- NOTE | 2018-04-12 14:19 | PAC ---
Date/Time of Note Date/Time of Note DATE: 04/12/18 TIME: 14:18 Post-Anesthesia Notes Post-Anesthesia Note Last documented vital signs Vital Signs Date Temp Pulse Resp B/P (MAP) Pulse Ox O2 O2 Flow FiO2 Time Delivery Rate 04/12/18 98.3 91 23 123/79 97 Room Air 13:35 (94) Activity: WNL Respiratory function: WNL Cardiovascular function: WNL Mental status: Baseline Pain reasonably controlled: Yes Hydration appropriate: Yes Nausea/Vomiting absent: Yes Comments BP: 125/98 HR: 98 RR: 15 T: 98 SaO2: 97% CHEY YAN MD Apr 12, 2018 14:18
[2018-04-12] MEDS ORDERED: LIDOCAINE 2% (SDV) 5 ML INJ ONE (14:29)
[2018-04-12] MEDS ORDERED: PROPOFOL 40 ML ONE (14:29)
[2018-04-12] MEDS ORDERED: ONDANSETRON 4 MG INJ IV PRN (14:30)
[2018-04-12] MEDS: PANTOPRAZOLE (EC) 40 MG TAB PO SCH (17:11)
[2018-04-12] MEDS: PROPRANOLOL 10 MG TAB PO SCH (17:12)
[2018-04-13] MEDS: CEFTRIAXONE 1 GM/50 ML (PMX) 50 ML IVPB SCH (01:33)
[2018-04-13 01:50] VITALS: BP 119/75; PULSE 77; RESP 20
[2018-04-13] MEDS: SOD CHLORIDE 0.9% 1,000 ML IV SCH (03:08)
[2018-04-13] MEDS: PANTOPRAZOLE (EC) 40 MG TAB PO SCH (05:42)
[2018-04-13 08:13] VITALS: BP 147/89; PULSE 68; RESP 20
[2018-04-13] MEDS: PROPRANOLOL 10 MG TAB PO SCH (08:15)
--- NOTE | 2018-04-13 09:24 | PN ---
Date/Time of Note Date/Time of Note DATE: 04/13/18 TIME: 09:06 Assessment/Plan VTE Prophylaxis Risk score (from Ns)>0 risk: 1 SCD applied (from Ns): Yes Pharmacological prophylaxis: NA/contraindicated Pharm contraindication: bleeding Lines/Catheters IV Catheter Type (from Nrs): Saline Lock Urinary Cath still in place: No Assessment/Plan Hospital Course S: Patient out of ICU since yesterday. Off of PPI and octreotide drips since yesterday. Per nursing staff tolerating diet, no signs of any upper or lower GI bleeding. No acute events overnight. Received PRBC transfusion yesterday. O: VS - see below Physical exam General: Lying in bed, alert Head: Normocephalic atraumatic Eyes: EOMI, pupils reactive to light Neck: Supple, nontender, midline Respiratory: Clear to auscultation bilaterally Cardiovascular: regular rate, no obvious murmurs Gastrointestinal: Distended, bowel sounds heard. Ventral hernia palpated and easily reducible Neurological: Moves all extremities spontaneously CT abdomen and pelvis: IMPRESSION: 1. Cirrhotic liver without discrete mass. 2. Splenomegaly and varicosities likely consistent with portal hypertension. 3. Mild to moderate ascites. 4. Ventral abdominal wall hernia containing mesenteric fat only. 5. Diverticulosis without diverticulitis. 6. Cholelithiasis. 7. Cardiomegaly. EGD April 11, 2018: Esophageal varices, portal gastropathy Assessment and plan: 58-year-old male who presents with: # Acute upper and lower GI bleed-likely secondary to alcoholic cirrhosis. Suspect upper GI source, status post EGD earlier this admission; status post 1 unit of FFP transfusion earlier this admission, and a total of 2 units of PRBC transfusion since this admission. -Continue PPI p.o., propranolol p.o., follow-up recommendations from GI team -Continue diet per GI recommendations -Monitor hemoglobin and hematocrit per GI recommendations # Alcoholic liver cirrhosis-Patient has not seen a physician, it appears patient had this diagnosis for quite some time, not on any medications at home apparently -monitor for signs of withdrawal, follow-up GI recommendations, Ativan as needed # elevated INR-mild, no signs of bleeding presently, likely 2/2 cirrhosis -Status post FFP, monitor coags for now. # Abdominal distention-Likely secondary to mild ascites secondary to alcoholic liver cirrhosis. CT abdomen pelvis results noted. -Again, 2 days ago not enough fluid to removed via paracentesis so this was not done, monitor for now # Ventral hernia-Easily reducible -Monitor for now, if worsens consider surgery consult # Tachycardia -Likely secondary to acute blood loss, continue IV hydration and monitor in ICU -Monitor for now Result Diagram: 04/13/18 0610 04/13/18 0610 Results 24hrs Laboratory Tests Test 04/12/18 11:34 04/12/18 11:36 04/12/18 17:38 04/13/18 00:59 Hemoglobin A1c 5.4 Hemoglobin 9.7 L 9.2 L 8.8 L Hematocrit 31.1 L 29.7 L 28.0 L Test 04/13/18 06:10 04/13/18 06:11 White Blood Count 4.9 Red Blood Count 3.60 L Hemoglobin 9.8 L Hematocrit 31.9 L Mean Corpuscular 88.6 Volume Mean Corpuscular 27.2 L Hemoglobin Mean Corpuscular 30.7 L Hemoglobin Concent Red Cell 16.2 H Distribution Width Platelet Count 78 #L Mean Platelet Volume 11.1 H Immature 0.200 Granulocytes % Neutrophils % 66.0 Lymphocytes % 17.4 Monocytes % 8.8 Eosinophils % 7.0 Basophils % 0.6 Nucleated Red Blood 0.0 Cells % Immature 0.010 Granulocytes # Neutrophils # 3.2 Lymphocytes # 0.9 Monocytes # 0.4 Eosinophils # 0.3 Basophils # 0.0 Nucleated Red Blood 0.0 Cells # Sodium Level 140 Potassium Level 3.7 Chloride Level 111 H Carbon Dioxide Level 23 Anion Gap 6 Blood Urea Nitrogen 9 Creatinine 0.70 Est Glomerular > 60 Filtrat Rate mL/min Glucose Level 115 Calcium Level 7.8 L Phosphorus Level 3.0 Magnesium Level 2.0 Exam/Review of Systems Exam Vitals Vital Signs Date Temp Pulse Resp B/P (MAP) Pulse Ox O2 O2 Flow FiO2 Time Delivery Rate 04/13/18 98.3 68 20 147/89 95 08:13 (108) 04/12/18 Room Air 14:20 Intake and Output 04/12/18 04/12/18 04/13/18 1515:00 23:00 07:00 IntakeIntake Total 870 ml 991.2 ml 950 ml OutputOutput Total 700 ml BalanceBalance 870 ml 291.2 ml 950 ml Results Results 24hrs Laboratory Tests Test 04/12/18 11:34 04/12/18 11:36 04/12/18 17:38 04/13/18 00:59 Hemoglobin A1c 5.4 Hemoglobin 9.7 L 9.2 L 8.8 L Hematocrit 31.1 L 29.7 L 28.0 L Test 04/13/18 06:10 04/13/18 06:11 White Blood Count 4.9 Red Blood Count 3.60 L Hemoglobin 9.8 L Hematocrit 31.9 L Mean Corpuscular 88.6 Volume Mean Corpuscular 27.2 L Hemoglobin Mean Corpuscular 30.7 L Hemoglobin Concent Red Cell 16.2 H Distribution Width Platelet Count 78 #L Mean Platelet Volume 11.1 H Immature 0.200 Granulocytes % Neutrophils % 66.0 Lymphocytes % 17.4 Monocytes % 8.8 Eosinophils % 7.0 Basophils % 0.6 Nucleated Red Blood 0.0 Cells % Immature 0.010 Granulocytes # Neutrophils # 3.2 Lymphocytes # 0.9 Monocytes # 0.4 Eosinophils # 0.3 Basophils # 0.0 Nucleated Red Blood 0.0 Cells # Sodium Level 140 Potassium Level 3.7 Chloride Level 111 H Carbon Dioxide Level 23 Anion Gap 6 Blood Urea Nitrogen 9 Creatinine 0.70 Est Glomerular > 60 Filtrat Rate mL/min Glucose Level 115 Calcium Level 7.8 L Phosphorus Level 3.0 Magnesium Level 2.0 Medications Medication Current Medications Sodium Chloride 1,000 ml @ 100 mls/hr Q10H IV Last administered on 04/12/18at 21:15; Admin Dose 100 MLS/HR; Start 04/11/18 at 01:44 IV Flush (NS 3 ml) 3 ml PER PROTOCOL IV ; Start 04/11/18 at 02:00 Ondansetron HCl (Zofran Inj) 4 mg Q6H PRN IV NAUSEA/VOMITING Last administered on 04/11/18at 12:13; Admin Dose 4 MG; Start 04/11/18 at 02:00 Morphine Sulfate (morphine) 2 mg Q4H PRN IV .PAIN 7-10; Start 04/11/18 at 02:00 Ceftriaxone Sodium 50 ml @ 100 mls/hr Q24H IVPB Last administered on 04/13/18at 01:33; Admin Dose 100 MLS/HR; Start 04/12/18 at 02:00 Lorazepam (Ativan) 0.5 mg Q6H PRN IV anxiety; Start 04/11/18 at 03:00 Multivitamins 10 ml/Thiamine HCl 100 mg/Folic Acid 1 mg/Sodium Chloride 1,011.2 ml @ 125 mls/ hr DAILY@09 IVPB Last administered on 04/12/18at 08:01; Admin Dose 125 MLS/HR; Start 04/11/18 at 09:00 Trimethobenzamide HCl (Tigan) 200 mg Q6H PRN IM NAUSEA AND/OR VOMITING; Start 04/11/18 at 10:00 Propranolol HCl (Inderal) 10 mg BID PO Last administered on 04/13/18at 08:15; Admin Dose 10 MG; Start 04/12/18 at 17:00 Pantoprazole (Protonix Tab) 40 mg BID@06,18 PO Last administered on 04/13/18at 05:42; Admin Dose 40 MG; Start 04/12/18 at 18:00 SANDI SNYDER Apr 13, 2018 09:18
[2018-04-13] MEDS: MULTIVITAMINS 10 ML, THIAMINE 100 MG, FOLIC ACID 1 MG in SOD CHLORIDE 0.9% 1,000 ML IVPB SCH (12:48)
--- NOTE | 2018-04-13 13:54 | PDOCDIS ---
Discharge Instructions CONDITION [id number] Patient Condition: [id number] Stable HOME CARE INSTRUCTIONS: [id number] Diet Instructions: [id number] Low Fat /Cholesterol ACTIVITY: [id number] Activity Restrictions: [id number] Slowly Increase Activity Rest between Activity Avoid heavy lifting FOLLOW UP/APPOINTMENTS Follow-up Plan Please take your medication as prescribed, see your doctor in the clinic in the next 1 week. SANDI SNYDER Apr 13, 2018 13:54
[2018-04-13] MEDS ORDERED: PROP10TA6 PO (13:55)
[2018-04-13] MEDS ORDERED: PANT40TA4 PO (13:55)
[2018-04-13] MEDS ORDERED: MULTI PO (13:55)
--- NOTE | 2018-04-13 14:00 | DS ---
Date/Time of Note Date/Time of Note DATE: 04/13/18 TIME: 13:56 Discharge Summary Admission/Discharge Info Admit Date/Time Apr 11, 2018 at 05:20 Discharge Date/Time Discharge Diagnosis # Acute upper and lower GI bleed-likely secondary to alcoholic cirrhosis. Re solved now, initially suspected upper GI source, status post EGD earlier this admission-with no acute findings. Status post FFP and 2 units PRBC transfusion this admission # Alcoholic liver cirrhosis # elevated INR-mild, no signs of bleeding presently, likely 2/2 cirrhosis # Abdominal distention-Likely secondary to mild ascites secondary to alcoholic liver cirrhosis. CT abdomen pelvis results noted. # Ventral hernia-Easily reducible # Tachycardia -resolved now Patient Condition: Stable Procedures CT abdomen and pelvis: IMPRESSION: 1. Cirrhotic liver without discrete mass. 2. Splenomegaly and varicosities likely consistent with portal hypertension. 3. Mild to moderate ascites. 4. Ventral abdominal wall hernia containing mesenteric fat only. 5. Diverticulosis without diverticulitis. 6. Cholelithiasis. 7. Cardiomegaly. EGD April 11, 2018: Esophageal varices, portal gastropathy Hx of Present Illness 58-year-old male history of alcohol use, who presents to [facility] for acute onset hematemesis. Patient is an alcoholic who currently drinks every day whose last drink was only a couple hours before hospital admission who came to the ER after vomiting blood. Patient states that this is happened one time before but was approximately 11 years ago. Patient drinks every day does not see doctors. Patient in the ED had multiple episodes of hematemesis as well as black stool. Patient currently has an NG tube and draining blood however patient only really complains about abdominal distention and pain secondary to the distention. When asked patient how long the abdomen has been distended he states that it has been like that for a few years but has recently gotten worse. Patient currently denies chest pain, shortness of breath, headache, leg pain. Hospital Course Patient was initially admitted to intensive care unit. Started on PPI and octreotide drips. He did receive 1 unit PRBC transfusion and 2 units of FFP. Symptoms slowly improved. He underwent EGD with findings listed as above. Over the course of his hospital stay his symptoms improved, he appeared to have resolution of the bleeding symptoms. He was educated about the importance of alcohol cessation. After the procedure he was started on propranolol and switch to PPI p.o. form. He was able to ambulate, tolerated diet. He had no signs of withdrawal. There was an attempt to perform a paracentesis before the procedure however there was not enough ascitic fluid to remove so this was canceled. In any event because patient is clinically improved and after getting clearance from the sales support consultant teams she will be discharged home later today and in improved condition. See below for full list of discharge medications. Home Meds Active Scripts Pantoprazole* (Pantoprazole*) 40 Mg Tablet.dr, 40 MG PO BID@,18, #60 3 Refills Prov:RAJANE,SANDI S. 04/13/18 Propranolol Hcl* (Propranolol Hcl*) 10 Mg Tablet, 10 MG PO BID, #60 TAB 3 Refills Prov:RAJANE,SANDI S. 04/13/18 Multivitamins* (Theragran*) 1 Tab Tab, 1 TAB PO DAILY, #30 TAB 3 Refills Prov:RALONDON LARASANDI S. 04/13/18 Follow-up Plan Please take your medication as prescribed, see your doctor in the clinic in the next 1 week. Primary Care Provider Care Physician No Primary Time spent on discharge: > 30 minutes Pending Labs Laboratory Tests Test 04/12/18 17:38 04/13/18 00:59 04/13/18 06:10 04/13/18 06:11 Hemoglobin 9.2 8.8 9.8 g/dl (14.0-18.0 g/dl (14.0-18. g/dl (14.0-18. ) 0) 0) Hematocrit 29.7 28.0 31.9 % (42.0-52.0) % (42.0-52.0) % (42.0-52.0) Free Thyroxine 0.77 ng/dl (0.78-2. 44) White Blood 4.9 Count 10^3/ul (4.8-1 0.8) Red Blood 3.60 Count 10^6/ul (4.70- 6.10) Mean 88.6 Corpuscular fl (82.0-101.0 Volume ) Mean 27.2 Corpuscular pg (29.0-33.0) Hemoglobin Mean 30.7 Corpuscular g/dl (32.0-37. Hemoglobin Conc 0) ent Red Cell 16.2 Distribution % (11.5-14.5) Width Platelet Count 78 10^3/UL (140-4 15) Mean Platelet 11.1 Volume fl (7.4-10.4) Immature 0.200 Granulocytes % % (0.001-0.429 ) Neutrophils % 66.0 % (39.0-77.0) Lymphocytes % 17.4 % (15.0-51.0) Monocytes % 8.8 % (0.0-11.0) Eosinophils % 7.0 % (0.0-7.0) Basophils % 0.6 % (0.0-2.0) Nucleated Red 0.0 Blood Cells % /100WBC (0.0-0 .0) Immature 0.010 Granulocytes # 10^3/ul (0.0-0 .031) Neutrophils # 3.2 10^3/ul (1.6-7 .5) Lymphocytes # 0.9 10^3/ul (0.8-2 .9) Monocytes # 0.4 10^3/ul (0.3-0 .9) Eosinophils # 0.3 10^3/ul (0.0-0 .5) Basophils # 0.0 10^3/ul (0.0-0 .1) Nucleated Red 0.0 Blood Cells # 10^3/ul (0.0-0 .0) Sodium Level 140 mmol/L (135-14 4) Potassium 3.7 Level mmol/L (3.5-5. 1) Chloride Level 111 mmol/L (97-110 ) Carbon Dioxide 23 Level mmol/L (21-31) Anion Gap 6 (5-13) Blood Urea 9 mg/dl (7-20) Nitrogen Creatinine 0.70 mg/dl (0.61-1. 24) Est Glomerular > 60 Filtrat mL/min (>60) Rate mL/min Glucose Level 115 mg/dl (70-220) Calcium Level 7.8 mg/dl (8.4-10. 2) Phosphorus 3.0 Level mg/dl (2.5-4.9 ) Magnesium 2.0 Level mg/dl (1.7-2.5 ) SANDI SNYDER Apr 13, 2018 14:00
[2018-04-13 14:36] VITALS: BP 136/73; PULSE 72; RESP 20
== END 2018-04-13 15:16 | disposition home or self-care (01) | DRG 378 ==
LOC: E/R 22:53 → ICU 04-11 05:20 → 2NE 04-12 16:50
PROVIDERS: ADMIT Internal Medicine; ATTEND Hospitalist
PROC: 30233N1 Transfusion of Nonautologous Red Blood Cells into Peripheral Vein, Percutaneous Approach (ICD-10-PCS; 2018-04-11)
PROC: 30233K1 Transfusion of Nonautologous Frozen Plasma into Peripheral Vein, Percutaneous Approach (ICD-10-PCS; 2018-04-11)
PROC: 30233N1 Transfusion of Nonautologous Red Blood Cells into Peripheral Vein, Percutaneous Approach (ICD-10-PCS; 2018-04-12)
PROC: 0DJ08ZZ Inspection of Upper Intestinal Tract, Via Natural or Artificial Opening Endoscopic (ICD-10-PCS; principal; 2018-04-12 16:30)
DX: K92.2 Gastrointestinal hemorrhage, unspecified (principal); D62 Acute posthemorrhagic anemia; F10.10 Alcohol abuse, uncomplicated; K70.31 Alcoholic cirrhosis of liver with ascites; R79.1 Abnormal coagulation profile; K43.9 Ventral hernia without obstruction or gangrene; Y90.0 Blood alcohol level of less than 20 mg/100 ml; I85.10 Secondary esophageal varices without bleeding; K31.89 Other diseases of stomach and duodenum
CPT/HCPCS: 36415; 36430; 71045; 74176; 76705; 80048; 80053; 80307; 83036; 83690; 83735; 84100; 84439; 84443; 84484; 85014; 85018; 85025; 85610; 85730; 86704; 86706; 86709; 86803; 86850; 86900; 86901; 86920; 87040; 87081; 87340; 93005; 96365; 96375; 96376; C9113; J0696; J2270; J2354; J2405; J2765; J3411; J3480; J7030; J7040; P9016; P9059